=== PATIENT | female | born 1955 | race Caucasian/White ===

== ENCOUNTER 2016-10-02 12:16 | Day surgery (SDC) | payer BC ==
[~2016-10-02] VITALS: Ht 162.6 cm; Wt 63.0 kg
[~2016-10-02 12:16] MED LIST: LACTATED RINGERS 1,000 ML IV SCH; SODIUM CHLORIDE FLUSH 3 ML SYR IV PRN; ceFAZolin 2,000 MG in SODIUM CHLORIDE VIAL (PF) 20 ML IV ONE; ceFAZolin 2,000 MG in SODIUM CHLORIDE VIAL (PF) 20 ML IV SCH
[2016-10-02 12:29] VITALS: BP 148/72
[2016-10-02] MEDS ORDERED: PROPOFOL 40 ML IV ONE (13:06)
[2016-10-02] MEDS ORDERED: LIDOCAINE 2% (XYLOCAINE) 20 ML VIAL INJ ONE (13:06)
[2016-10-02] MEDS ORDERED: ROPIVACAINE 1% 10 MG/ML (NAROPIN) 20 ML AMPUL ONE (13:06)
[2016-10-02] MEDS ORDERED: MIDAZOLAM 2 MG/2 ML (VERSED) VIAL ONE (13:07)
[2016-10-02] MEDS ORDERED: ALFENTANIL 1,000 MCG/2 ML AMP IV ONE (13:07)
[2016-10-02 13:09] LABS: MEAN CORPUSCULAR HEMOGLOBIN 28.3 PG (26.0-34.0); MEAN CORPUSCULAR HGB CONC 34.8 g/dL (31.0-37.0); MEAN PLATELET VOLUME 9.7 FL (6.0-9.5); WHITE BLOOD COUNT 9.13 10^3uL (4.0-11.0)
[2016-10-02 13:14] LABS: BILIRUBIN,URINE Negative (Negative); CLARITY,URINE Clear; COLOR,URINE Yellow; GLUCOSE, URINE (UA) Negative (Negative); LEUKOCYTE ESTERASE ,URINE 1+ (Negative); UROBILINOGEN,URINE 0.2 mg/dL (0.2-1.0)
[2016-10-02 13:26] LABS: URINE CENTRIFUGED VOLUME 12 mL
[2016-10-02] MEDS ORDERED: ceFAZolin 1000 MG (ANCEF) VIAL ONE (14:15)
[2016-10-02] MEDS ORDERED: POVIDONE IODINE 10% OINTMENT (BETADINE) 30 GM TUBE TOP ONE (15:47)
[2016-10-02] MEDS ORDERED: DEXAMETHASONE 4 MG/ML (DECADRON) VIAL ONE (15:47)
[2016-10-02 16:10] VITALS: BP 137/80
[2016-10-02 16:44] VITALS: BP 156/77
== END 2016-10-02 16:50 | disposition home or self-care (01) ==
LOC: ASC 12:16
PROVIDERS: ATTEND Podiatrist
DX: M20.11 Hallux valgus (acquired), right foot (principal); M20.5X1 Other deformities of toe(s) (acquired), right foot; E03.9 Hypothyroidism, unspecified; E78.5 Hyperlipidemia, unspecified; F41.9 Anxiety disorder, unspecified
CPT/HCPCS: 28299; 36415; 81003; 81015; 85027; 87088; C1713; J0690; J1100; J2001; J2250; J2795; J7120